=== PATIENT | female | born 1990 ===

== ENCOUNTER 2021-12-23 11:16 | Outpatient (CLI) | payer OTHER | END 2021-12-23 12:47 | disposition home or self-care (01) | LOC: PRENATAL 11:16 | PROVIDERS: ATTEND Obstetrics & Gynecology Maternal & Fetal Medicine | DX: Z31.9 Encounter for procreative management, unspecified (principal) ==

== ENCOUNTER 2022-05-03 16:59 | Inpatient (IN) | payer OTHER ==
[~2022-05-03] VITALS: Ht 154.9 cm; Wt 85.3 kg
[2022-05-03] MEDS ORDERED: PRENATAL TABLE1 EAC1 PO (19:01)
[2022-05-03] MEDS ORDERED: FOLIC ACID20 MG PO (19:01)
== END 2022-05-06 11:51 | disposition home or self-care (01) | DRG 785 ==
LOC: OBS/DEL 16:59 → OB/GYN 20:39 → LDR 20:39 → OBS/DEL 20:39 → OB/GYN 21:31
PROVIDERS: ADMIT Obstetrics & Gynecology; ATTEND Obstetrics & Gynecology
PROC: 0UB70ZZ Excision of Bilateral Fallopian Tubes, Open Approach (ICD-10-PCS; 2022-05-03)
PROC: 4A1HXCZ Monitoring of Products of Conception, Cardiac Rate, External Approach (ICD-10-PCS; 2022-05-03)
PROC: 10D00Z1 Extraction of Products of Conception, Low, Open Approach (ICD-10-PCS; principal; 2022-05-03 20:00)
DX: O34.211 Maternal care for low transverse scar from previous cesarean delivery (principal); Z30.2 Encounter for sterilization; Z3A.37 37 weeks gestation of pregnancy; Z37.0 Single live birth; Z20.822 Contact with and (suspected) exposure to COVID-19